=== PATIENT | female | born 1975 | race Caucasian/White ===

== ENCOUNTER 2019-03-05 16:56 | Emergency (ER) | payer OTHER ==
--- NOTE | 2019-03-05 16:59 | PDOC ---
Rapid Medical Evaluation Time Seen by Provider: 03/05/19 16:57 Medical Evaluation: Allergies Allergy/AdvReac Type Severity Reaction Status Date / Time No Known Allergies Allergy Verified 08/19/16 17:04 03/05/19 16:58 HPI necak and back pain with night sweat associated with cough x3 days EXAM: NAD ORDERS: Melissa 03/05/19 16:59 Discharge Disposition - Diagnosis Viral illness - Referrals - Patient Instructions - Post Discharge Activity
[2019-03-05] MEDS ORDERED: IBUPROFEN 600 MG TABLET (FP) PO ONE ×2 (17:00→17:02)
[2019-03-05 17:01] VITALS: BP 140/76; PULSE 72; TEMP 97.8; BMI 30.2
--- NOTE | 2019-03-05 17:59 | PDOC ---
History of Present Illness - General Chief Complaint: Back Pain Stated Complaint: BACK PAIN Time Seen by Provider: 03/05/19 16:57 Past History - Past Medical History Allergies/Adverse Reactions: Allergies Allergy/AdvReac Type Severity Reaction Status Date / Time No Known Allergies Allergy Verified 03/05/19 16:59 Home Medications: Ambulatory Orders Albuterol Sulfate Inhaler - [Ventolin HFA Inhaler -] 2 inh IH Q6H #1 inh Ondansetron [Zofran *Odt*] 4 mg SL TID #30 od.tablet 08/19/16 predniSONE [Deltasone -] 40 mg PO DAILY #14 tablet 08/19/16 Cyclobenzaprine HCl [Flexeril 10 mg] 10 mg PO HS PRN #15 tablet 06/01/18 Cyclobenzaprine HCl [Flexeril -] 10 mg PO HS #10 tablet 03/05/19 Ibuprofen 600 mg PO Q6H #30 tablet 03/05/19 Asthma: No Cancer: No Cardiac Disorders: No COPD: No Diabetes: No HTN: No Seizures: No Thyroid Disease: No - Surgical History Cholecystectomy: Yes (9 yrs ago) - Suicide/Smoking/Psychosocial Hx Smoking History: Never smoked Have you smoked in the past 12 months: No Number of Cigarettes Smoked Daily: 0 Information on smoking cessation initiated: No Hx Alcohol Use: No Drug/Substance Use Hx: No Substance Use Type: None Hx Substance Use Treatment: No *Physical Exam - Vital Signs Last Vital Signs Temp Pulse Resp BP Pulse Ox 97.8 F 72 16 140/76 100 03/05/19 16:59 03/05/19 16:59 03/05/19 16:59 03/05/19 16:59 03/05/19 16:59 ED Treatment Course - Medications Given in the ED: ED Medications Discontinued Medications Generic Name Dose Route Start Last Admin Trade Name Freq PRN Reason Stop Dose Admin Ibuprofen 600 mg 03/05/19 17:00 03/05/19 17:02 Motrin - PO 03/05/19 17:01 600 mg ONCE ONE Administration *DC/Admit/Observation/Transfer Diagnosis at time of Disposition: Acute thoracic back pain Qualifiers: Back pain laterality: bilateral Qualified Code(s): M54.6 - Pain in thoracic spine - Discharge Dispostion Disposition: HOME Condition at time of disposition: Stable Decision to Admit order: No - Referrals Referrals: Ayala,Jesse, MD [Primary Care Provider] - - Patient Instructions Printed Discharge Instructions: DI for Thoracic Back Pain Additional Instructions: You were evaluated for your upper back and neck pain today. It is most likely due to a muscle spasm Please take the Motrin as directed Take the Flexiril every 8 hours the first day. Then take the medication at night only. Do not drink or drive after taking this medication as it may make you drowsy. You may apply warm compresses to the area. Please follow up with orthopedics if your symptoms do not improve this week; a referral has been provided to you Return to the ER for worsening pain despite treatment, numbness/weakness down the extremities, changes in the way you walk, numbness/tingling to the groin, if you have bladder/bowel incontinence, or if you have any changes in your symptoms. - Post Discharge Activity Forms/Work/School Notes: Back to Work
[2019-03-05] MEDS ORDERED: LIDOCAINE 5% TOPICAL PATCH TP ONE (18:06)
[2019-03-05] MEDS ORDERED: CYCLOBENZAPRINE HCL 10 MG TABLET (FP) PO ONE (18:06)
[2019-03-05] MEDS ORDERED: LIDOCAINE 5% TOPICAL PATCH ONE (18:19)
[2019-03-05] MEDS ORDERED: LIDOCAINE PATCH REMOVAL MC SCH (22:00)
== END 2019-03-05 19:04 | disposition home or self-care (01) ==
LOC: JERFT 16:56
DX: M54.6 Pain in thoracic spine (principal)
CPT/HCPCS: 99281-25

== ENCOUNTER 2020-10-21 19:25 | Emergency (ER) | payer OTHER ==
[2020-10-21 19:43] VITALS: TEMP 97.9; BMI 25.4
[2020-10-21 22:55] LABS: BASO % 1.1 % (0-2.0); EOS % 1.7 % (0-4.5); HEMATOCRIT 28.4 % (32.4-45.2); HEMOGLOBIN 8.7 GM/dL (10.7-15.3); LYMPH % 32.6 % (8-40); MCH 20.2 pg (25.7-33.7); MCHC 30.7 g/dl (32.0-36.0); MEAN CELL VOLUME 65.8 fl (80-96); MEAN PLT VOLUME 8.4 fl (7.5-11.1); NEUT % 56.6 % (42.8-82.8); PLATELET COUNT 384 K/MM3 (134-434); RBC 4.31 M/mm3 (3.60-5.2); RDW 17.3 % (11.6-15.6); WHITE BLOOD COUNT 7.6 K/mm3 (4.0-10.0)
[2020-10-21 23:30] LABS: POTASSIUM 3.9 mmol/L (3.5-5.1)
[2020-10-21 23:32] LABS: ALBUMIN 3.9 g/dl (3.4-5.0); BLOOD UREA NITROGEN 16.8 mg/dL (7-18); CALCIUM 9.1 mg/dL (8.5-10.1)
[2020-10-21 23:35] LABS: CREATININE 0.6 mg/dL (0.55-1.3)
[2020-10-21 23:38] LABS: BILIRUBIN,TOTAL 0.4 mg/dL (0.2-1)
[2020-10-21 23:52] LABS: ANISOCYTOSIS 1+; MACROCYTOSIS 0; PLATELET ESTIMATE NORMAL; TARGET CELLS 1+
[2020-10-22 01:24] VITALS: BP 131/84; PULSE 76
== END 2020-10-22 01:24 | disposition home or self-care (01) ==
LOC: JER 19:25
DX: R07.0 Pain in throat (principal)
CPT/HCPCS: 36415; 70491-TC; 71046-TC-FY; 80053; 82550; 84484; 85025; 87070; 87880; 93005; 93010; 99285-25; Q9967

== ENCOUNTER 2020-12-02 17:52 | Emergency (ER) | payer OTHER ==
[2020-12-02 18:03] VITALS: BP 150/80; PULSE 79; TEMP 98.1; BMI 23.4
== END 2020-12-02 20:35 | disposition home or self-care (01) ==
LOC: JERFT 17:52
DX: M54.6 Pain in thoracic spine (principal)
CPT/HCPCS: 71046-TC-FY; 72070-TC-FY; 99284-25

== ENCOUNTER 2021-08-28 14:33 | Emergency (ER) | payer OTHER ==
[2021-08-28 15:05] VITALS: BP 124/69; PULSE 80; TEMP 97.9; BMI 25.2
[2021-08-28] MEDS ORDERED: PHENAZOPYRIDINE HCL 100 MG TABLET (FP) PO ONE (15:51)
[2021-08-28 15:57] LABS: HCG,QUALITATIVE URINE Negative
[2021-08-28] MEDS ORDERED: CEFTRIAXONE 500 MG in DEXTROSE 5%-WATER - 50 ML IVPB ONE (16:17)
[2021-08-28] MEDS ORDERED: AZITHROMYCIN 500 MG TABLET PO ONE (16:17)
[2021-08-28 16:18] LABS: EPI CELLS >36 /uL (0-25.1); HYALINE CASTS 3 /uL (0-3.1); PH,URINE 8.5 (5.0-8.0); URINE APPEARANCE TURBID; URINE BACTERIA 1687 /uL (0-1359); URINE BILIRUBIN NEGATIVE (NEGATIVE); URINE COLOR ORANGE; URINE GLUCOSE (UA) NEGATIVE (NEGATIVE); URINE KETONE NEGATIVE (NEGATIVE); URINE LEUK ESTERASE 2+ (NEGATIVE); URINE NITRITE NEGATIVE (NEGATIVE); URINE PROTEIN 3+ (NEGATIVE); URINE RBC 4054 /uL (0-23.9); URINE UROBILINOGEN 0.2 mg/dL (0.2-1.0); URINE WBC 2539 /uL (0-25.8)
[2021-08-28 16:48] LABS: BASO % 1.1 % (0-2.0); EOS % 0.9 % (0-4.5); HEMATOCRIT 28.5 % (32.4-45.2); HEMOGLOBIN 8.7 GM/dL (10.7-15.3); LYMPH % 15.5 % (8-40); MCH 19.4 pg (25.7-33.7); MCHC 30.4 g/dl (32.0-36.0); MEAN CELL VOLUME 63.9 fl (80-96); MEAN PLT VOLUME 7.9 fl (7.5-11.1); MONO % 6.1 % (3.8-10.2); NEUT % 76.4 % (42.8-82.8); PLATELET COUNT 323 10^3/uL (134-434); RBC 4.46 M/mm3 (3.60-5.2)
[2021-08-28] MEDS ORDERED: PHENAZOPYRIDINE HCL 100 MG TABLET (FP) ONE (16:52)
[2021-08-28] MEDS ORDERED: AZITHROMYCIN 250 MG TABLET ONE (16:52)
[2021-08-28] MEDS ORDERED: cefTRIAXone SODIUM 1 GM VIAL ONE (16:58)
[2021-08-28] MEDS ORDERED: WATER FOR INJ,STERILE 10 ML ONE (17:00)
[2021-08-28 17:07] LABS: ANISOCYTOSIS 2+; CALCIUM 8.7 mg/dL (8.5-10.1); MACROCYTOSIS 0; PLATELET ESTIMATE NORMAL; TARGET CELLS 1+
[2021-08-28 17:08] LABS: ALBUMIN 3.6 g/dl (3.4-5.0); BLOOD UREA NITROGEN 19.2 mg/dL (7-18)
[2021-08-28 17:11] LABS: CREATININE 0.8 mg/dL (0.55-1.3)
[2021-08-28 17:12] LABS: BILIRUBIN,TOTAL 0.4 mg/dL (0.2-1)
[2021-08-28 19:07] LABS: HIV INTERPRETATION NEGATIVE (NEGATIVE)
== END 2021-08-28 20:41 | disposition home or self-care (01) ==
LOC: JER 14:33 → JERFT 14:33
DX: B37.0 Candidal stomatitis (principal); B37.3 Candidiasis of vulva and vagina; R30.0 Dysuria
CPT/HCPCS: 36415; 76830-TC; 80053; 81003; 82962; 84703; 85025; 87070; 87086; 87186; 87205; 87389; 87491; 87591; 87661; 99285-25

== ENCOUNTER 2022-07-25 05:42 | Day surgery (SDC) | payer OTHER ==
[2022-07-23 11:16] VITALS: BMI 26.6
[2022-07-25] MEDS ORDERED: ACETAMINOPHEN 325 MG TABLET (FP) PO PRN (07:16)
[2022-07-25] MEDS ORDERED: LACTATED RINGERS SOLUTION 1,000 ML IV SCH (07:30)
[2022-07-25 10:21] VITALS: RESP 18
[2022-07-25 11:35] VITALS: TEMP 97.1
[2022-07-25 12:22] VITALS: BP 125/71; PULSE 68
== END 2022-07-25 12:35 | disposition home or self-care (01) ==
LOC: JASU-ENDO 05:42
PROVIDERS: ATTEND Internal Medicine Gastroenterology
PROC: 0DB78ZX Excision of Stomach, Pylorus, Via Natural or Artificial Opening Endoscopic, Diagnostic (ICD-10-PCS; 2022-07-25)
PROC: 0DB78ZX Excision of Stomach, Pylorus, Via Natural or Artificial Opening Endoscopic, Diagnostic (ICD-10-PCS; 2022-07-25)
PROC: 0DJD8ZZ Inspection of Lower Intestinal Tract, Via Natural or Artificial Opening Endoscopic (ICD-10-PCS; principal; 2022-07-25 11:15)
DX: Z12.11 Encounter for screening for malignant neoplasm of colon (principal); K29.50 Unspecified chronic gastritis without bleeding; B96.81 Helicobacter pylori [H. pylori] as the cause of diseases classified elsewhere
CPT/HCPCS: 43239; G0121; 81025; 88305-TC; 88342-TC